=== PATIENT | male | born 1995 | race Caucasian/White ===

== ENCOUNTER 2022-06-13 13:33 | Emergency (ER) | payer OTHER, SELFPAY ==
[2022-06-13 14:04] VITALS: BP 135/75; PULSE 84; RESP 18; TEMP 36.6; O2SAT 98; BMI 27.2
[2022-06-13 19:40] VITALS: BP 121/82; PULSE 80; RESP 12; TEMP 36.8; O2SAT 97
--- NOTE | 2022-06-13 19:51 | ED_ITS ---
HPI - Eye Problem General Chief complaint: Eye Problems Stated complaint: Scratch on L eye Time Seen by Provider: 06/13/22 19:47 Source: patient Mode of arrival: ambulatory Limitations: no limitations History of Present Illness HPI Narrative: This is a 27-year-old male no significant medical history presenting to the emergency department with a red, tearing left eye status post patt being scratched on Sunday, 3 days ago. He tells me someone poked him right in the center of his eye. Patient tells me that it has been progressively worsening. Reports some sensitivity to light, and intermittent foreign body sensation, he tells me he feels like he may have something underneath his left upper lid. He denies pain with eye movements, fevers, chills, headache, dizziness, doubble vision. Patient is up-to-date on tetanus shot Related Data Previous Rx's Medication Instructions Recorded erythromycin 5 mg/gram (0.5 %) eye 0.5 inch ophthalmic (eye) BID 7 06/13/22 ointment days #3.5 grams Allergies Allergy/AdvReac Type Severity Reaction Status Date / Time Unable to Assess Allergy Unverified 06/13/22 19:48 Review of Systems Review of Systems: Constitutional : No Weight loss, No Fever, No Chills, No Fatigue, No Malaise ENT/Mouth : No sore throat, No Rhinorrhea Eyes: No Eye Pain, No Swelling, + Redness Cardiovascular : No Chest Pain, No SOB, No Dyspnea on Exertion, No Orthopnea, No Edema, No Palpitations Respiratory : No Cough, No Sputum, No Wheezing Gastrointestinal : No Nausea, No Vomiting, No Diarrhea, No Constipation, No abdominal Pain, No Hematochezia, No Melena Genitourinary : No Dysuria, No Urinary Frequency, No Hematuria, Musculoskeletal : No joint pain, No Myalgias, No Joint Swelling Skin : No Skin Lesions, No rash Neuro : No Weakness, No Numbness, No Dizziness, No Headache Psych : No Anxiety/Panic, No Depression All other systems reviewed and are negative Yes all other systems are reviewed and are negative [facility] Past Medical History Attestation statement: The following information was validated with the patient. Source: old records reviewed and nursing notes reviewed Social History Social History Advance Directives: No Advance Directives Information Provided: No Physical Exam Vital Signs: Vital Signs: Last Vital Signs Temp 98.2 F 06/13/22 19:40 Pulse 80 06/13/22 19:40 Resp 12 06/13/22 19:40 BP 121/82 06/13/22 19:40 Pulse Ox 97 06/13/22 19:40 O2 Del Method 06/13/22 19:40 BMI result Body Mass Index 27.2 VSS Appearance: Alert.? Oriented X3.? No acute distress.? Head: Normocephalic, atraumatic, no step-offs or deformities Eyes: Pupils equal, round and reactive to light.? Left eye with conjunctival injection and clear tearing. No evident foreign bodies upon examination. Extraocular movements intact and pain-free. No hyphema or vitreous hemorrhage noted ENT: Pharynx normal.? Neck: Normal inspection.? Neck supple.? CVS: Normal heart rate and rhythm.? Pulses normal.? Respiratory: No respiratory distress.? Breath sounds normal.? Abdomen: Soft and nontender.? Skin: Skin warm and dry.? Normal skin color.? Normal skin turgor.? Extremities: No lower extremity edema.? No calf ttp. 5/5 strength to bilateral upper and lower extremities Neuro: Oriented X 3.? No motor deficit.? No sensory deficit. CN 2-12 intact Course Reevaluation(s) Reevaluation #1: Fluorescein stain was done which shows a small corneal abrasion right over the left pupil (area of increased uptake). Negative Maksim sign, no sign of vitreous hemorrhage, globe rupture, corneal ulcer. No evidence of foreign body in eye or below upper/lower lids. Patient tolerated procedure well. Will do Kanu-Pen to look at eye pressures. Time: 20:05 Reevaluation #2: Intra occular pressures L eye: 23 R eye: 21. Visual acuity pending Time: 20:17 Reevaluation #3: Visual acuity significantly worse on the left eye. Patient advised to call Opht halmology tomorrow to schedule an appointment. Advised to return with new or worsening symptoms. Educated on worrisome signs and symptoms. Time: 20:36 MDM - Eye Problem MDM Narrative Medical decision making narrative: 1949 27-year-old male presents with a watering, red left eye status post scratching his eye 3 days ago. Denies pain with eye movements. Physical examination with left conjunctival injection, no evident foreign bodies, extraocular movements intact and pain-free. Plan at this time is to obtain fluorescein stained with tetracaine. Will obtain visual acuity. History and physical examination not consistent with call owes angle glaucoma, vitreous hemorrhage, corneal ulcer, globe rupture or wet macular degeneration. Likely corneal abrasion. Medical Records Attestation: I reviewed the patient's medical records. Lab Data Attestation: I reviewed the patient's lab results. Critical Care Time Critical Care Time Critical Care Time: No Discharge Plan Discharge Clinical Impression: Corneal abrasion Patient Disposition: Home, Self-Care Instructions: Corneal Abrasion (ED), Photophobia (ED) Additional Instructions: Take your medications as prescribed. If you were prescribed antibiotics today, it is important that you take your medication to their entirety, do not skip any doses, do not finish them early. Follow-up with your primary care provider this week. Follow-up with ophthalmology call to schedule an appointment tomorrow Return to the emergency department with new or worsening symptoms. Such as fevers, chills, chest pain, shortness of breath, nausea, vomiting, dizziness, headache, vision changes, lethargy, bleeding out of eye, discharge end of I, severe pain, worsening photophobia In case of emergency call 911 Prescriptions: New erythromycin 5 mg/gram (0.5 %) ointment 0.5 inch ophthalmic (eye) BID 7 Days Qty: 3.5 0RF Referrals: Dank Hoffmann [Physician] - 1 day Physician,Maren Delong [Primary Care Provider] - 2 days Stand Alone Forms: Work/School Release
[2022-06-13] MEDS: Erythromycin Base 0.5% Oph Oin 1 GM TUBE 1 CM EYE-LEFT (20:37)
[2022-06-13] MEDS: Fluorescein Sodium STRIP 1 STRIP EYE-BOTH (20:37)
[2022-06-13] MEDS: Tetracaine HCl/PF 0.5% Oph Sol 4 ML DROPS 3 DROP EYE-BOTH (20:37)
--- NOTE | 2022-06-13 20:49 | PC.NURSE ---
Discharge instructions provided to pt. Pt verbalizes understanding.
== END 2022-06-13 20:49 | disposition home or self-care (01) ==
PROVIDERS: Emergency Provider Emergency Medicine
DX: S05.02XA Injury of conjunctiva and corneal abrasion without foreign body, left eye, initial encounter (principal); H57.12 Ocular pain, left eye; X58.XXXA Exposure to other specified factors, initial encounter; Y93.9 Activity, unspecified; Y92.9 Unspecified place or not applicable; Y99.9 Unspecified external cause status
CPT/HCPCS: 99283; 99284